=== PATIENT | male | born 1990 | race Caucasian/White ===

== ENCOUNTER 2016-05-20 18:34 | Emergency (ER) | payer SELFPAY ==
[2016-05-20] MEDS ORDERED: Zofran 4 MG/2 ML VIAL IV ONE (19:09)
[2016-05-20] MEDS ORDERED: PROTONIX 40 MG IV IV ONE ×2 (19:09→19:21)
[2016-05-20] MEDS ORDERED: Sodium Chloride 0.9% 1000 ML 1,000 ML IV STA (19:09)
--- NOTE | 2016-05-20 19:14 | ERPHSYRPT ---
- History of Present Illness Time Seen by Provider: 05/20/16 19:00 Historian: patient Exam Limitations: clinical condition Patient Subjective Stated Complaint: pt co abd pain to center of abd since friday, has been seen in er x2 for same thing, and given zofran and tordaol, pt has labs and ct scan done Triage Nursing Assessment: pt alert, moaning in pain holding abd, pain like this multi times before, last time 2 years ago, pt co pain to center of abd, nausea, vomited x10 today, able eat today, last bm yesterday Physician History: PATIENT WITH A HISTORY OF ALCOHOL AND OPIATE ABUSE COMPLAINS OF UPPER ABDOMINAL PAIN X 3 DAYS ASSOCIATED WITH FREQUENT EMESIS. DENIES DIARRHEA, MELENA, HEADACHE , CHEST PAIN. DENIES RECENT ALCOHOL USE BUT LATER ADMITS TO DRINKING PAST 4 HOURS. Timing/Duration: day(s) Activities at Onset: none Quality: cramping Abdominal Pain Onset Location: generalized abdomen Pain Radiation: no radiation Severity of Pain-Max: moderate Severity of Pain-Current: moderate Modifying Factors: Improves With: vomiting Associated Symptoms: nausea, vomiting Previous symptoms: same symptoms as today Allergies/Adverse Reactions: No Known Drug Allergies Allergy (Verified 05/20/16 18:57) Hx Tetanus, Diphtheria Vaccination/Date Given: Yes Hx Influenza Vaccination/Date Given: No Hx Pneumococcal Vaccination/Date Given: No Immunizations Up to Date: Yes - Review of Systems Constitutional: No Fever, No Chills Eyes: No Symptoms Ears, Nose, & Throat: No Symptoms Respiratory: No Symptoms, No Cough, No Dyspnea Cardiac: No Symptoms, No Chest Pain, No Edema, No Syncope Abdominal/Gastrointestinal: Abdominal Pain, Nausea, Vomiting, No Diarrhea Genitourinary Symptoms: No Symptoms, No Dysuria Musculoskeletal: No Symptoms, No Back Pain, No Neck Pain Skin: No Symptoms, No Rash Neurological: No Dizziness, No Focal Weakness, No Sensory Changes Psychological: No Symptoms Endocrine: No Symptoms All Other Systems: Reviewed and Negative - Past Medical History Pertinent Past Medical History: Yes Other Medical History: chronic abd pain - Past Surgical History Past Surgical History: No - Social History Smoking Status: Current every day smoker How long have you smoked: 1/2 Exposure to second hand smoke: Yes Drug Use: none Patient Lives Alone: No - Nursing Vital Signs Nursing Vital Signs: Initial Vital Signs Temperature 98.3 F Temperature Source Oral Pulse Rate 97 Respiratory Rate 18 Blood Pressure [Left Arm] 129/71 Pain Intensity 9 - Physical Exam General Appearance: moderate distress, alert, other (CLINCHING HIS ABDOMEN, STRONG ODOR OF ALCOHOL ON BREATH) Eye Exam: PERRL/EOMI, eyes nml inspection Ears, Nose, Throat Exam: normal ENT inspection, pharynx normal, moist mucous membranes Neck Exam: normal inspection, non-tender, supple, full range of motion Respiratory Exam: normal breath sounds, lungs clear, No respiratory distress Cardiovascular Exam: regular rate/rhythm, normal heart sounds Gastrointestinal/Abdomen Exam: soft, normal bowel sounds, tenderness (MINIMAL PERIUMBILICAL AND EPIGASTRIC TENDERNESS), No mass Back Exam: normal inspection, normal range of motion, No CVA tenderness, No vertebral tenderness Extremity Exam: normal inspection, normal range of motion, pelvis stable Neurologic Exam: alert, oriented x 3, cooperative, normal mood/affect, nml cerebellar function, sensation nml, No motor deficits Skin Exam: normal color, warm, dry SpO2 Interpretation: normal SpO2: 100 - Course EKG Interpreted by Me: RATE, Sinus Rhythm, NORMAL AXIS Ordered Tests: Active Orders 24 hr Category Date Time Status ABDOMEN AND PELVIS W CONTRAST [CT] Stat Exams 05/20/16 19:14 Ordered AMYLASE Stat Lab 05/20/16 19:27 Completed BMP Stat Lab 05/20/16 19:27 Completed CBC W DIFF Stat Lab 05/20/16 19:27 Completed Ethyl Alcohol,Urine Stat Lab 05/20/16 19:27 Completed LIPASE Stat Lab 05/20/16 19:27 Completed UA W/ MICROSCOPIC Stat Lab 05/20/16 19:27 Completed Urine Triage Profile Stat Lab 05/20/16 19:27 Completed Medication Summary Discontinued Medications Generic Name Dose Route Start Last Admin Trade Name Freq PRN Reason Stop Dose Admin Chlordiazepoxide HCl 50 mg 05/20/16 19:58 05/20/16 20:18 Librium 25 Mg PO 05/20/16 19:59 50 mg STAT ONE Administration Sodium Chloride 1,000 mls @ 999 mls/hr 05/20/16 19:09 05/20/16 19:30 Sodium Chloride 0.9% 1000 Ml IV 05/20/16 20:09 999 mls/hr .Q1H1M STA Administration Sodium Chloride Confirm 05/20/16 19:21 Sodium Chloride 0.9% 1000 Ml Administered 05/20/16 19:22 Dose 1,000 mls @ ud .ROUTE .STK-MED ONE Lorazepam 2 mg 05/20/16 19:58 05/20/16 20:09 Ativan 2 Mg/1 Ml Vial IV 05/20/16 19:59 2 mg STAT ONE Administration Lorazepam Confirm 05/20/16 20:01 Ativan 2 Mg/1 Ml Vial Administered 05/20/16 20:02 Dose 2 mg .ROUTE .STK-MED ONE Ondansetron HCl 4 mg 05/20/16 19:09 05/20/16 19:30 Zofran 4 Mg/2 Ml Vial IV 05/20/16 19:10 4 mg STAT ONE Administration Ondansetron HCl Confirm 05/20/16 19:21 Zofran 4 Mg/2 Ml Vial Administered 05/20/16 19:22 Dose 4 mg .ROUTE .STK-MED ONE Pantoprazole Sodium 40 mg 05/20/16 19:09 05/20/16 19:30 Protonix 40 Mg Iv IV 05/20/16 19:10 40 mg STAT ONE Administration Pantoprazole Sodium Confirm 05/20/16 19:21 Protonix 40 Mg Iv Administered 05/20/16 19:22 Dose 40 mg IV .STK-MED ONE Potassium Chloride 40 meq 05/20/16 20:04 05/20/16 20:18 Klor Con 10 Meq PO 05/20/16 20:05 40 meq STAT ONE Administration Potassium Chloride Confirm 05/20/16 20:13 Klor Con 10 Meq Administered 05/20/16 20:14 Dose 40 meq PO .STK-MED ONE Lab/Rad Data: Laboratory Result Diagrams 05/20/16 19:27 05/20/16 19:27 Laboratory Results 05/20/16 05/20/16 05/20/16 Range/Units 19:27 19: 19:27 WBC (4.0-10.5) K/mm3 RBC (4.1-5.6) M/mm3 Hgb (12.5-18.0) gm/dl Hct (42-50) % MCV (78-100) fl MCH (26-32) pg MCHC (32-36) g/dl RDW (11.5-14.0) % Plt Count (150-450) K/mm3 MPV (6-9.5) fl Gran % (36.0-66.0) % Lymphocytes % (24.0-44.0) % Monocytes % (0.0-12.0) % Eosinophils % (0.00-5.0) % Basophils % (0.0-0.4) % Basophils # (0-0.4) Sodium (136-145) mEq/L Potassium (3.5-5.1) mEq/L Chloride (98-107) mEq/L Carbon Dioxide (21-32) mEq/L Anion Gap (5-15) MEQ/L BUN (9-20) mg/dL Creatinine (0.55-1.30) mg/dl Estimated GFR ML/MIN Glucose (70-110) MG/DL Calcium (8.5-10.1) mg/dL Amylase (25-115) U/L Lipase (73-393) U/L Ur Collection Type CLEAN CATCH Urine Color DARK YELLOW (YELLOW) Urine Appearance CLEAR (CLEAR) Urine pH 8.5 8.5 (5-6) Ur Specific [place] 1.020 (1.005-1.025) Urine Protein 30 (Negative) Urine Glucose (UA) NEGATIVE (NEGATIVE) mg/dL Urine Ketones SMALL-15 (NEGATIVE) Urine Nitrite NEGATIVE (NEGATIVE) Urine Bilirubin NEGATIVE (NEGATIVE) Urine Urobilinogen 1 (0-1) mg/dL Urine WBC (Auto) NEGATIVE (NEGATIVE) Urine RBC (Auto) NEGATIVE (0-5) Danielito/ul Urine Microscopic RBC 2-5 (0-2) /HPF Urine Microscopic WBC 2-5 (0-5) /HPF Ur Epithelial Cells MODERATE (FEW) /HPF Urine Bacteria MODERATE (NEGATIVE) /HPF Urine Mucus MODERATE (NEGATIVE) /HPF Urine Opiates Level NEG. (NEGATIVE) Ur Methadone NEG. (NEGATIVE) Urine Barbiturates NEG. (NEGATIVE) Ur Phencyclidine (PCP) NEG. (NEGATIVE) Urine Amphetamine NEG. (NEGATIVE) U Benzodiazepine Level NEG. (NEGATIVE) Urine Cocaine NEG. (NEGATIVE) Urine Marijuana (THC) NEG. (NEGATIVE) Urine Ethyl Alcohol 38 H (0.00-20) mg/dl Specimen Received 05/20/16 1930 05/20/16 05/20/16 Range/Units 19:27 19:27 WBC 11.8 H (4.0-10.5) K/mm3 RBC 4.46 (4.1-5.6) M/mm3 Hgb 13.5 (12.5-18.0) gm/dl Hct 39.7 L (42-50) % MCV 89.0 (78-100) fl MCH 30.3 (26-32) pg MCHC 34.0 (32-36) g/dl RDW 14.0 (11.5-14.0) % Plt Count 302 (150-450) K/mm3 MPV 9.3 (6-9.5) fl Gran % 64.6 (36.0-66.0) % Lymphocytes % 26.6 (24.0-44.0) % Monocytes % 7.3 (0.0-12.0) % Eosinophils % 1.2 (0.00-5.0) % Basophils % 0.3 (0.0-0.4) % Basophils # 0.03 (0-0.4) Sodium 142 (136-145) mEq/L Potassium 3.0 L* (3.5-5.1) mEq/L Chloride 103 (98-107) mEq/L Carbon Dioxide 18.0 L (21-32) mEq/L Anion Gap 24.1 H (5-15) MEQ/L BUN 18 (9-20) mg/dL Creatinine 1.14 (0.55-1.30) mg/dl Estimated GFR > 60 ML/MIN Glucose 86 (70-110) MG/DL Calcium 9.7 (8.5-10.1) mg/dL Amylase 42 (25-115) U/L Lipase 95 (73-393) U/L Ur Collection Type Urine Color (YELLOW) Urine Appearance (CLEAR) Urine pH (5-6) Ur Specific [place] (1.005-1.025) Urine Protein (Negative) Urine Glucose (UA) (NEGATIVE) mg/dL Urine Ketones (NEGATIVE) Urine Nitrite (NEGATIVE) Urine Bilirubin (NEGATIVE) Urine Urobilinogen (0-1) mg/dL Urine WBC (Auto) (NEGATIVE) Urine RBC (Auto) (0-5) Danielito/ul Urine Microscopic RBC (0-2) /HPF Urine Microscopic WBC (0-5) /HPF Ur Epithelial Cells (FEW) /HPF Urine Bacteria (NEGATIVE) /HPF Urine Mucus (NEGATIVE) /HPF Urine Opiates Level (NEGATIVE) Ur Methadone (NEGATIVE) Urine Barbiturates (NEGATIVE) Ur Phencyclidine (PCP) (NEGATIVE) Urine Amphetamine (NEGATIVE) U Benzodiazepine Level (NEGATIVE) Urine Cocaine (NEGATIVE) Urine Marijuana (THC) (NEGATIVE) Urine Ethyl Alcohol (0.00-20) mg/dl Specimen Received - Progress Progress: improved Progress Note: 05/20/16 21:13 PATIENT GIVEN IV BOLUS NORMAL SALINE 1 LITER/HR, ZOFRAN 4MG, PROTONIX 40MG IV, ATIVAN 2MG IV, AND ORAL LIBRIUM 50MG, RE-EXAM ABDOMEN- NONTENDER, + BOWEL SOUNDS 05/20/16 21:19 Counseled pt/family regarding: lab results, diagnosis, need for follow-up - Departure Time of Disposition: 21:20 Departure Disposition: Home Clinical Impression: MIXED SUBSTANCE ABUSE, ACUTE GASTRITIS, HYPOKALEMIA Condition: Stable Critical Care Time: No Additional Instructions: ZOFRAN 4MG EVERY 4 HOURS FOR NAUSEA NEEDED. ATARAX 25MG EVERY 6 HOURS FOR ANXIETY. KLOR CON 20MEQ TWICE DAILY FOR 5 DAYS TO TREAT LOW POTASSIUM. FOLLOWUP WITH AA MEETINGS. Prescriptions: Ondansetron [Zofran Odt] 4 mg PO Q4H PRN PRN #6 tab.rapdis PRN Reason: Nausea Hydroxyzine HCl 25 mg [Atarax 25 mg] 25 mg PO Q6HPRN PRN #15 tablet PRN Reason: Anxiety Potassium Chloride 20 Meq [Klor-Con 20 MEQ] 20 meq PO BID #10 tab
[2016-05-20] MEDS ORDERED: Zofran 4 MG/2 ML VIAL ONE (19:21)
[2016-05-20] MEDS ORDERED: Sodium Chloride 0.9% 1000 ML 1,000 ML ONE (19:21)
[2016-05-20 19:34] LABS: BASOPHIL % 0.3 % (0.0-0.4); Eosinophil % 1.2 % (0.00-5.0); Granulocytes % 64.6 % (36.0-66.0); Lymphocytes % 26.6 % (24.0-44.0); Mean Corpuscular Hemoglobin 30.3 pg (26-32); Mean Platelet Volume 9.3 fl (6-9.5); Monocytes % 7.3 % (0.0-12.0); Platelet Count 302 K/mm3 (150-450); Red Blood Count 4.46 M/mm3 (4.1-5.6); White Blood Count 11.8 K/mm3 (4.0-10.5)
[2016-05-20 19:55] LABS: Collection Type CLEAN CATCH; Ph 8.5 (5-6)
[2016-05-20 19:56] LABS: Bacteria MODERATE /HPF (NEGATIVE); COMPLETE URINE MICROSCOPIC? YES; Epithelial Cells MODERATE /HPF (FEW); Mucus MODERATE /HPF (NEGATIVE)
[2016-05-20] MEDS ORDERED: Ativan 2 MG/1 ML VIAL IV ONE (19:58)
[2016-05-20] MEDS ORDERED: LIBRIUM 25 MG PO ONE (19:58)
[2016-05-20 20:00] LABS: ANION GAP 24.1 MEQ/L (5-15); BLOOD UREA NITROGEN 18 mg/dL (9-20); CHLORIDE 103 mEq/L (98-107); Glucose 86 MG/DL (70-110); LIPASE 95 U/L (73-393); SODIUM 142 mEq/L (136-145)
[2016-05-20] MEDS ORDERED: Ativan 2 MG/1 ML VIAL ONE (20:01)
[2016-05-20] MEDS ORDERED: Klor Con 10 MEQ PO ONE ×2 (20:04→20:13)
[2016-05-20 21:27] VITALS: BP 124/59; PULSE 75; O2SAT 100
== END 2016-05-20 21:27 | disposition home or self-care (01) ==
LOC: ED 18:34
DX: F19.10 Other psychoactive substance abuse, uncomplicated (principal); K29.70 Gastritis, unspecified, without bleeding; E87.6 Hypokalemia; F11.10 Opioid abuse, uncomplicated; F10.10 Alcohol abuse, uncomplicated; R10.10 Upper abdominal pain, unspecified; R11.2 Nausea with vomiting, unspecified
CPT/HCPCS: 36000; 36415; 80048; 80307; 80320; 81000; 82150; 83690; 83986; 85025; 93005; 96360; 96361; 96374; 96375; 99284; J2060; J2405